=== PATIENT | male | born 1955 | race American Indian/Alaskan Native ===

== ENCOUNTER 2016-09-22 12:10 | Emergency (ER) | payer SELFPAY ==
[2016-09-22 13:39] VITALS: BP 139/82
== END 2016-09-22 18:18 | disposition left against medical advice (07) ==
LOC: ED 12:10
DX: M79.673 Pain in unspecified foot (principal); Z53.21 Procedure and treatment not carried out due to patient leaving prior to being seen by health care provider

== ENCOUNTER 2017-05-04 12:50 | Emergency (ER) | payer MEDICARE ==
[2017-05-04 13:35] LABS: Bilirubin,Urine NEG (Negative); Blood,Urine NEG (Negative); Ketones,Urine NEG (Negative); Leukocyte Esterase,Urine NEG (Negative); Mucus,Urine FEW /HPF; Nitrite,Urine NEG (Negative); Protein,Urine <15 mg/dL mg/dL (Negative); Urobilinogen,Urine < 2.0 mg/dL (<2.0); WBC,Urine < 1.0 /HPF (0.0-6.0)
--- NOTE | 2017-05-04 17:20 | Emergency Department Report ---
HPI - General Chief Complaint: Urogenital-Male Time Seen by Provider: 05/04/17 16:45 - HPI HPI: The patient is a 62-year-old male with no prior medical history presents to ED complaining of possible hemorrhage due to straining earlier today. Patient states he had a bowel movement this morning and has to strain a lot and after that had some mild rectal pain. Patient states he wanted to be checked for hemorrhoids. Patient also states that he's noticed his urine as different odor for about a while now. Patient denies fever/chills/vomiting/dysuria/abdominal pain/penal discharge/ testicular pain or swelling. He denies blood in his stool or in the urine as well as any recent sexual intercourse ED Past Medical Hx - Past Medical History Previous Medical History?: No - Surgical History Past Surgical History?: No - Social History Smoking Status: Never Smoker Substance Use Type: None - Medications Home Medications: Home Medications Medication Instructions Recorded Confirmed Last Taken Type Ibuprofen [Motrin] 800 mg PO Q8HR PRN 09/22/16 09/22/16 09/21/16 History Phenyleph/Mineral Oil/Petrolat 1 applic RC DAILY #1 tube 05/04/17 Unknown Rx [Preparation H Ointment] ED Review of Systems ROS: Stated complaint: URINE ODOR Other details as noted in HPI Constitutional: denies: chills, fever Eyes: denies: eye pain, eye discharge, vision change ENT: denies: ear pain, throat pain Respiratory: denies: cough, shortness of breath, wheezing Cardiovascular: denies: chest pain, palpitations Endocrine: no symptoms reported Gastrointestinal: denies: abdominal pain, nausea, diarrhea Genitourinary: denies: urgency, dysuria Musculoskeletal: denies: back pain, joint swelling, arthralgia Skin: denies: rash, lesions Neurological: denies: headache, weakness, paresthesias Psychiatric: denies: anxiety, depression Hematological/Lymphatic: denies: easy bleeding, easy bruising Physical Exam - Physical Exam Vital Signs: Vital Signs 05/04/17 12:58 Temperature 98.6 F Pulse Rate 83 Respiratory 18 Rate Blood Pressure 144/88 O2 Sat by Pulse 99 Oximetry Physical Exam: GENERAL: Alert and oriented x3, no apparent distress, Normal Gait, atraumatic. HEAD: Head is normocephalic and a-traumatic. EYES: Extra ocular muscles are intact. Pupils are equal, round, and reactive to light and accommodation. NECK: Supple. Non edematous, No carotid bruits. No lymphadenopathy or thyromegaly. No C-spine tenderness LUNGS: Symetrical with respiration, No wheezing, no rales or crackles, CTAB. HEART: S1, S2 present, regular rate and rhythm without murmur, no rubs, no gallops. Non tender to palpation ABDOMEN: No organomegaly was noted,Positive bowel sounds, soft, and non- distended. . Nontender to palpation on all Quadrants, NO CVA tenderness. RECTUM: No bleeding bleeding observed.Mild external hemorrhoid 7- 8:00, nontender to palpation UROGENITAL: No scrotal mass, Scrotum non tender to palpation bilaterally, no hernia, no scars or penile discharge. SKIN: Warm and dry, No lesions, No ulceration or induration present. ED Course Vital Signs 05/04/17 12:58 Temperature 98.6 F Pulse Rate 83 Respiratory 18 Rate Blood Pressure 144/88 O2 Sat by Pulse 99 Oximetry ED Medical Decision Making - Medical Decision Making 62-year-old male presents with mild hemorrhoidal skin tag ED course: Urinalysis ordered. Urinalysis negative Discussed the patient to use hemorrhoidal preparation H cream as discussed Discussed findings with the patient. Discussed follow-up with primary care physician. Discussed high-fiber diet and Colace as needed for stool softening. Patient is stable patient has no logical deficits His vital signs are normal patient is in no acute distress. He is alert and oriented 3 and states he'll follow-up with his primary care Critical care attestation.: If time is entered above; I have spent that time in minutes in the direct care of this critically ill patient, excluding procedure time. ED Disposition Clinical Impression: Hemorrhoid Qualifiers: Hemorrhoid type: first degree Qualified Code(s): K64.0 - First degree hemorrhoids Disposition: - TO HOME OR SELFCARE Is pt being admited?: No Does the pt Need Aspirin: No Condition: Stable Instructions: Hemorrhoids (ED) Additional Instructions: Follow-up which her primary care physician. Prescriptions: Phenyleph/Mineral Oil/Petrolat [Preparation H Ointment] 1 applic RC DAILY #1 tube Referrals: PRIMARY CARE, [Primary Care Provider] - 3-5 Days Forms: Work/School Release Form(ED) Time of Disposition: 17:57
[2017-05-04 18:18] VITALS: BP 111/84
== END 2017-05-04 18:18 | disposition home or self-care (01) ==
LOC: ED 12:50
DX: K64.0 First degree hemorrhoids (principal)
CPT/HCPCS: 81001; 99283

== ENCOUNTER 2018-01-25 13:13 | Emergency (ER) | payer MEDICARE ==
[2018-01-25 13:36] VITALS: BP 140/83
--- NOTE | 2018-01-25 16:45 | Emergency Department Report ---
ED Male HPI - General Chief complaint: Urogenital-Male Stated complaint: UROGENTELIA-MALE Time Seen by Provider: 01/25/18 16:31 Source: patient Mode of arrival: Ambulatory Limitations: No Limitations - History of Present Illness Initial comments: This is a 63-year-old male nontoxic, well nourished in appearance, no acute signs of distress presents to the ED with c/o of dyrusia and polyuria x3 days. Patient denies any testicular pain or swelling. Patient denies any penile discharge or penile ulcers. Patient denies any nausea, vomiting, chest pain, shortness of breathe, fever, chills, headache, back pain, numbness, tingling, stiff neck. Patient denies any other urinary symptoms. Patient denies any allergies or PMH. MD Complaint: dysuria -: days(s) (3) Radiation: none Severity: mild Severity scale (0 -10): 3 Quality: burning Consistency: constant Improves with: none Worsens with: urination dysuria. denies: discharge, swelling, mass, rash, urinary retention, blood in urine, fever, nausea/vomiting, incontinence - Related Data Home Medications Medication Instructions Recorded Confirmed Last Taken Ibuprofen [Motrin] 800 mg PO Q8HR PRN 09/22/16 09/22/16 09/21/16 Previous Rx's Medication Instructions Recorded Last Taken Type Phenyleph/Mineral Oil/Petrolat 1 applic RC DAILY #1 tube 05/04/17 Unknown Rx [Preparation H Ointment] Ciprofloxacin HCl [Ciprofloxacin 500 mg PO Q12HR #14 tab 01/25/18 Unknown Rx TAB] Allergies Allergy/AdvReac Type Severity Reaction Status Date / Time No Known Allergies Allergy Verified 01/25/18 13:30 ED Review of Systems ROS: Stated complaint: UROGENTELIA-MALE Other details as noted in HPI Constitutional: denies: chills, fever Eyes: denies: eye pain, eye discharge, vision change ENT: denies: ear pain, throat pain Respiratory: denies: cough, shortness of breath, wheezing Cardiovascular: denies: chest pain, palpitations Endocrine: no symptoms reported Gastrointestinal: denies: abdominal pain, nausea, diarrhea Genitourinary: urgency, dysuria, frequency. denies: hematuria, discharge, testicular pain, testicular mass Musculoskeletal: denies: back pain, joint swelling, arthralgia Skin: denies: rash, lesions Neurological: denies: headache, weakness, paresthesias Psychiatric: denies: anxiety, depression Hematological/Lymphatic: denies: easy bleeding, easy bruising ED Past Medical Hx - Past Medical History Previous Medical History?: No - Surgical History Past Surgical History?: No - Social History Smoking Status: Never Smoker Substance Use Type: None - Medications Home Medications: Home Medications Medication Instructions Recorded Confirmed Last Taken Type Ibuprofen [Motrin] 800 mg PO Q8HR PRN 09/22/16 09/22/16 09/21/16 History Phenyleph/Mineral Oil/Petrolat 1 applic RC DAILY #1 tube 05/04/17 Unknown Rx [Preparation H Ointment] Ciprofloxacin HCl [Ciprofloxacin 500 mg PO Q12HR #14 tab 01/25/18 Unknown Rx TAB] ED Physical Exam - General Limitations: No Limitations General appearance: alert, in no apparent distress - Head Head exam: Present: atraumatic, normocephalic - Eye Eye exam: Present: normal appearance Pupils: Present: normal accommodation - ENT ENT exam: Present: normal exam, mucous membranes moist - Neck Neck exam: Present: normal inspection, full ROM - Respiratory Respiratory exam: Present: normal lung sounds bilaterally. Absent: respiratory distress - Cardiovascular Cardiovascular Exam: Present: regular rate, normal rhythm. Absent: systolic murmur, diastolic murmur, rubs, gallop - GI/Abdominal GI/Abdominal exam: Present: soft, normal bowel sounds - Rectal Rectal exam: Present: deferred - exam: Present: normal inspection. Absent: testicular tenderness, urethral discharge, scrotal swelling, vertical testicular lie External exam: Present: normal external exam. Absent: erythema, swelling, lesions, lacerations, ecchymosis, bleeding - Extremities Exam Extremities exam: Present: normal inspection, full ROM - Back Exam Back exam: Present: normal inspection - Neurological Exam Neurological exam: Present: alert, oriented X3 - Psychiatric Psychiatric exam: Present: normal affect, normal mood - Skin Skin exam: Present: warm, dry, intact, normal color. Absent: rash ED Course Vital Signs 01/25/18 13:30 Temperature 98 F Pulse Rate 100 H Respiratory 16 Rate Blood Pressure 140/83 O2 Sat by Pulse 99 Oximetry - Reevaluation(s) Reevaluation #1: 01/25/18 16:48 Patient is speaking in full sentences with no signs of distress noted. ED Medical Decision Making - Medical Decision Making This is a 63-year-old male that presents for urethritis. Patient is stable was examined by me. UA obtained. Urine culture pending. There is no CVA tenderness. Patient denies any STD exposure. Patient discharged with ciprofloxacin 7 days. Patient was referred to Follow-up with a primary care doctor in 3-5 days or if symptoms worsen and continue return to emergency room as soon as possible. At time of discharge, the patient does not seem toxic or ill in appearance. No acute signs of distress noted. Patient agrees to discharge treatment plan of care. No further questions noted by the patient. Critical care attestation.: If time is entered above; I have spent that time in minutes in the direct care of this critically ill patient, excluding procedure time. ED Disposition Clinical Impression: Urethritis Disposition: DC-01 TO HOME OR SELFCARE Is pt being admited?: No Does the pt Need Aspirin: No Condition: Stable Instructions: Nonspecific Urethritis in Men (ED), Ciprofloxacin (By mouth) Additional Instructions: Follow-up with a primary care doctor in 3-5 days or if symptoms worsen and continue return to emergency room as soon as possible. Prescriptions: Ciprofloxacin HCl [Ciprofloxacin TAB] 500 mg PO Q12HR #14 tab Referrals: PRIMARY CAREMD [Primary Care Provider] - 3-5 Days HARSH GUY MD [Staff Physician] - 3-5 Days [facility] [Outside] - 3-5 Days [facility] [Outside] - 3-5 Days Forms: Work/School Release Form(ED)
[2018-01-25 18:42] LABS: Bilirubin,Urine NEG (Negative); Blood,Urine MOD (Negative); Color,Urine Yellow (Yellow); Protein,Urine <15 mg/dL mg/dL (Negative); Urobilinogen,Urine < 2.0 mg/dL (<2.0); WBC,Urine < 1.0 /HPF (0.0-6.0)
== END 2018-01-25 20:18 | disposition home or self-care (01) ==
LOC: ED 13:13
DX: N34.2 Other urethritis (principal)
CPT/HCPCS: 81001; 87086; 87186; 99283

== ENCOUNTER 2019-05-30 13:14 | Emergency (ER) | payer MEDICARE ==
[2019-05-30 13:53] VITALS: BP 166/97
--- NOTE | 2019-05-30 16:15 | Emergency Department Report ---
- General Chief complaint: Skin Rash Stated complaint: RIB PAIN Time Seen by Provider: 05/30/19 15:11 Source: patient Mode of arrival: Ambulatory Limitations: No Limitations - History of Present Illness Initial comments: 65-year-old male with no significant past medical history presents also complaining of generalized rash 3-4 days. Rash started at the arms and legs and to a lesser extent to the torso. It does not involve the palms or the soles. Patient denies oral lesions, fever, exposure to new soaps, lotions, detergents, or medications. Patient also complains of bilateral flank flat oblique abdominal muscle pain particularly with moving. Patient feels like he's having spasms and states he has been exercising a a lot lately. Patient shares a home with multiple people and no else has any skin rash or bites. - Related Data Home Medications Medication Instructions Recorded Confirmed Last Taken Ibuprofen [Motrin] 800 mg PO Q8HR PRN 09/22/16 09/22/16 09/21/16 Previous Rx's Medication Instructions Recorded Last Taken Type Phenyleph/Mineral Oil/Petrolat 1 applic RC DAILY #1 tube 05/04/17 Unknown Rx [Preparation H Ointment] Ciprofloxacin HCl [Ciprofloxacin 500 mg PO Q12HR #14 tab 01/25/18 Unknown Rx TAB] diphenhydrAMINE [Benadryl CAP] 25 mg PO Q6HR PRN #20 capsule 05/30/19 Unknown Rx predniSONE [Deltasone] 40 mg PO QDAY 5 Days tab 05/30/19 Unknown Rx Allergies Allergy/AdvReac Type Severity Reaction Status Date / Time No Known Allergies Allergy Verified 01/25/18 13:30 Abscess Boil HPI - HPI Chief Complaint: Skin Rash Stated Complaint: RIB PAIN Time Seen by Provider: 05/30/19 15:11 Home Medications: Home Medications Medication Instructions Recorded Confirmed Last Taken Ibuprofen [Motrin] 800 mg PO Q8HR PRN 09/22/16 09/22/16 09/21/16 Previous Rx's Medication Instructions Recorded Last Taken Type Phenyleph/Mineral Oil/Petrolat 1 applic RC DAILY #1 tube 05/04/17 Unknown Rx [Preparation H Ointment] Ciprofloxacin HCl [Ciprofloxacin 500 mg PO Q12HR #14 tab 01/25/18 Unknown Rx TAB] diphenhydrAMINE [Benadryl CAP] 25 mg PO Q6HR PRN #20 capsule 05/30/19 Unknown Rx predniSONE [Deltasone] 40 mg PO QDAY 5 Days tab 05/30/19 Unknown Rx Allergies/Adverse Reactions: Allergies Allergy/AdvReac Type Severity Reaction Status Date / Time No Known Allergies Allergy Verified 01/25/18 13:30 ED Review of Systems ROS: Stated complaint: RIB PAIN Other details as noted in HPI Comment: All other systems reviewed and negative ED Past Medical Hx - Past Medical History Previous Medical History?: No - Surgical History Past Surgical History?: No - Social History Smoking Status: Never Smoker Substance Use Type: None - Medications Home Medications: Home Medications Medication Instructions Recorded Confirmed Last Taken Type Ibuprofen [Motrin] 800 mg PO Q8HR PRN 09/22/16 09/22/16 09/21/16 History Phenyleph/Mineral Oil/Petrolat 1 applic RC DAILY #1 tube 05/04/17 Unknown Rx [Preparation H Ointment] Ciprofloxacin HCl [Ciprofloxacin 500 mg PO Q12HR #14 tab 01/25/18 Unknown Rx TAB] diphenhydrAMINE [Benadryl CAP] 25 mg PO Q6HR PRN #20 capsule 05/30/19 Unknown Rx predniSONE [Deltasone] 40 mg PO QDAY 5 Days tab 05/30/19 Unknown Rx ED Physical Exam - General Limitations: No Limitations - Other Other exam information: Gen.: No acute distress Head: Atraumatic Eyes: Normal appearance ENT: No oral lesions or posterior pharyngeal edema Neck: Normal appearance, no posterior midline tenderness, no meningismus Chest: Clear to auscultation bilaterally Cardiovascular: Regular rate and rhythm Abdomen: Normal appearance, soft, nontender, no rebound or guarding, normal bowel sounds Back: Normal appearance, nontender Extremity: Full range of motion, normal appearance Neuro: Alert and oriented 3, clear speech, no focal motor or sensory deficit Psychiatric: Appropriate Skin: Generalized pruritic papular rash that is excoriated. Rash more significant on the arms and thighs. No warmth or erythema. Rash spares the palms and soles. ED Course Vital Signs 05/30/19 13:30 Temperature 98.5 F Pulse Rate 92 H Respiratory 16 Rate Blood Pressure 166/97 O2 Sat by Pulse 100 Oximetry ED Medical Decision Making - Medical Decision Making Blood pressure elevated follow-up advised Patient receiving Benadryl and steroids prescription for pruritic rash. - Differential Diagnosis insect bites, allergic reaction Critical Care Time: No Critical care attestation.: If time is entered above; I have spent that time in minutes in the direct care of this critically ill patient, excluding procedure time. ED Disposition Clinical Impression: Pruritic rash Disposition: - TO HOME OR SELFCARE Is pt being admited?: No Does the pt Need Aspirin: No Condition: Stable Instructions: Acute Rash (ED) Additional Instructions: Take the medication as prescribed. Follow-up with your doctor or with the doc tor/clinic provided. Return if symptoms worsen as indicated by your discharge instructions. Prescriptions: diphenhydrAMINE [Benadryl CAP] 25 mg PO Q6HR PRN #20 capsule PRN Reason: Itching predniSONE [Deltasone] 40 mg PO QDAY 5 Days tab Referrals: PRIMARY CARE, [Primary Care Provider] - 3-5 Days [facility] [Provider Group] - 3-5 Days Time of Disposition: 16:16
== END 2019-05-30 16:22 | disposition home or self-care (01) ==
LOC: ED 13:14
DX: R21 Rash and other nonspecific skin eruption (principal); L29.9 Pruritus, unspecified; Z79.899 Other long term (current) drug therapy

== ENCOUNTER 2019-06-30 12:08 | Emergency (ER) | payer MEDICARE ==
[2019-06-30 13:03] VITALS: BP 143/89
--- NOTE | 2019-06-30 13:07 | Emergency Department Report ---
Chief Complaint: Urogenital-Male Stated Complaint: PROBLEMS WITH PENIS Time Seen by Provider: 06/30/19 13:02 - HPI History of Present Illness: This is a 64 y o male presents to ED cc of burning in his penis, he denies any lesions , testicular pain or swelling or dysuria He denies fever, chills, n/v or abd pain. She denies any prostate disease or issues. Pt states that he is not sexually active and does not think he has a STD Pt states this has happened before and he got some medicine and it went away, cant recall what medication. - ROS Review of Systems: As noted in HPI - Exam Physical Exam: Gen: no acute distress, AMBULATORY AAOx 3 ABD: NOn tender to palpation MSE screening note: Focused history and physical exam performed. Due to findings the following was ordered: ED Medical Decision Making - Lab Data Laboratory Last Values Urine Color Yellow (Yellow) 06/30/19 14:15 Urine Turbidity Clear (Clear) 06/30/19 14:15 Urine pH 6.0 (5.0-7.0) 06/30/19 14:15 Ur Specific [place] 1.019 (1.003-1.030) 06/30/19 14:15 Urine Protein <15 mg/dl mg/dL (Negative) 06/30/19 14:15 Urine Glucose (UA) Neg mg/dL (Negative) 06/30/19 14:15 Urine Ketones Neg mg/dL (Negative) 06/30/19 14:15 Urine Blood Neg (Negative) 06/30/19 14:15 Urine Nitrite Neg (Negative) 06/30/19 14:15 Urine Bilirubin Neg (Negative) 06/30/19 14:15 Urine Urobilinogen < 2.0 mg/dL (<2.0) 06/30/19 14:15 Ur Leukocyte Esterase Neg (Negative) 06/30/19 14:15 Urine WBC (Auto) 1.0 /HPF (0.0-6.0) 06/30/19 14:15 Urine RBC (Auto) 1.0 /HPF (0.0-6.0) 06/30/19 14:15 U Epithel Cells (Auto) 1.0 /HPF (0-13.0) 06/30/19 14:15 - Medical Decision Making This is a 64-year-old male that presents for urethritis. UA obtained. Urine culture pending. There is no CVA tenderness. Patient denies any STD exposure. Patient was discharged with ciprofloxacin and Pyridium. Patient was referred to Follow-up with a primary care doctor in 3-5 days or if symptoms worsen as well as followed up as well at time of discharge, the patient does not seem toxic or ill in appearance. No acute signs of distress noted. Patient agrees to discharge treatment plan of care. No further questions noted by the patient. ED Disposition for MSE Clinical Impression: Dysuria Disposition: DC- TO HOME OR SELFCARE Is pt being admited?: No Does the pt Need Aspirin: No Condition: Stable Instructions: Dysuria (ED) Additional Instructions: follow up with pcp Prescriptions: Ciprofloxacin HCl [Ciprofloxacin TAB] 500 mg PO Q12HR #14 tab Phenazopyridine [Pyridium] 100 mg PO TID #8 tab Referrals: LIONEL WYNN MD [Primary Care Provider] - 3-5 Days AZEEM HARVEY MD [Referring] - 3-5 Days FRANCISCO SWANN MD [Referring] - 3-5 Days [facility] [Provider Group] - 3-5 Days Time of Disposition: 15:15
[2019-06-30 14:40] LABS: Bilirubin,Urine NEG (Negative); Blood,Urine NEG (Negative); Color,Urine Yellow (Yellow); Protein,Urine <15 mg/dL mg/dL (Negative); Urobilinogen,Urine < 2.0 mg/dL (<2.0)
== END 2019-06-30 15:21 | disposition home or self-care (01) ==
LOC: ED 12:08
DX: R30.0 Dysuria (principal)
CPT/HCPCS: 81001

== ENCOUNTER 2020-08-13 14:05 | Emergency (ER) | payer MEDICARE ==
[2020-08-13 14:26] VITALS: BP 128/83
--- NOTE | 2020-08-13 14:33 | Emergency Department Report ---
ED Upper Extremity Inj HPI - General Chief Complaint: Extremity Problem,Nontraumatic Stated Complaint: MUSCLE SPAMS Time Seen by Provider: 08/13/20 14:26 Source: patient Mode of arrival: Ambulatory Limitations: No Limitations - History of Present Illness Initial Comments: This is a 65-year-old male nontoxic, well nourished in appearance, no acute signs of distress presents to the ED with c/o of acute on chronic left upper shoulder pain. Patient stated that the past 2 days he was working out and developed this pain. Patient stated has been working out prior to pain. Patient denies any trauma. Denies any bladder or bowel instability. Patient denies any urinary symptoms. Denies any fever, chills, nausea, vomiting, headache, stiff neck, chest pain or shortness of breath. Patient denies any numbness or tingling. Denies any allergies. MD Complaint: Injury to:: left, shoulder -: days(s) Other Extremity Injury: Shoulder: Left Severity scale (0 -10): 8 Improves With: immobilization Worsens With: movement of extremity Associated Symptoms: denies other symptoms. denies: weakness, numbness, neck pain, suspects foreign body, nausea/vomiting, heard/felt popping sensat - Related Data Home Medications Medication Instructions Recorded Confirmed Last Taken Ibuprofen [Motrin] 800 mg PO Q8HR PRN 09/22/16 09/22/16 09/21/16 Previous Rx's Medication Instructions Recorded Last Taken Type Phenyleph/Mineral Oil/Petrolat 1 applic RC DAILY #1 tube 05/04/17 Unknown Rx [Preparation H Ointment] diphenhydrAMINE [Benadryl CAP] 25 mg PO Q6HR PRN #20 capsule 05/30/19 Unknown Rx predniSONE [Deltasone] 40 mg PO QDAY 5 Days tab 05/30/19 Unknown Rx Ciprofloxacin HCl [Ciprofloxacin 500 mg PO Q12HR #14 tab 06/30/19 Unknown Rx TAB] Phenazopyridine [Pyridium] 100 mg PO TID #8 tab 06/30/19 Unknown Rx Omeprazole 20 mg PO QDAY #20 capsule. 02/23/20 Unknown Rx Cyclobenzaprine [Flexeril] 10 mg PO QHS PRN #10 tablet 08/13/20 Unknown Rx Naproxen 500 mg PO Q12H PRN #12 tablet 08/13/20 Unknown Rx Allergies Allergy/AdvReac Type Severity Reaction Status Date / Time No Known Allergies Allergy Verified 02/23/20 12:39 ED Review of Systems ROS: Stated complaint: MUSCLE SPAMS Other details as noted in HPI Comment: All other systems reviewed and negative Constitutional: denies: chills, fever Eyes: denies: eye pain, eye discharge, vision change ENT: denies: ear pain, throat pain Respiratory: denies: cough, shortness of breath, wheezing Cardiovascular: denies: chest pain, palpitations Endocrine: no symptoms reported Gastrointestinal: denies: abdominal pain, nausea, diarrhea Genitourinary: denies: urgency, dysuria Musculoskeletal: denies: back pain, joint swelling, arthralgia Skin: denies: rash, lesions Neurological: denies: headache, weakness, paresthesias Psychiatric: denies: anxiety, depression Hematological/Lymphatic: denies: easy bleeding, easy bruising ED Past Medical Hx - Past Medical History Previous Medical History?: No - Surgical History Past Surgical History?: No - Social History Smoking Status: Never Smoker Substance Use Type: None - Medications Home Medications: Home Medications Medication Instructions Recorded Confirmed Last Taken Type Ibuprofen [Motrin] 800 mg PO Q8HR PRN 09/22/16 09/22/16 09/21/16 History Phenyleph/Mineral Oil/Petrolat 1 applic RC DAILY #1 tube 05/04/17 Unknown Rx [Preparation H Ointment] diphenhydrAMINE [Benadryl CAP] 25 mg PO Q6HR PRN #20 capsule 05/30/19 Unknown Rx predniSONE [Deltasone] 40 mg PO QDAY 5 Days tab 05/30/19 Unknown Rx Ciprofloxacin HCl [Ciprofloxacin 500 mg PO Q12HR #14 tab 06/30/19 Unknown Rx TAB] Phenazopyridine [Pyridium] 100 mg PO TID #8 tab 06/30/19 Unknown Rx Omeprazole 20 mg PO QDAY #20 capsule. 02/23/20 Unknown Rx Cyclobenzaprine [Flexeril] 10 mg PO QHS PRN #10 tablet 08/13/20 Unknown Rx Naproxen 500 mg PO Q12H PRN #12 tablet 08/13/20 Unknown Rx ED Physical Exam - General Limitations: No Limitations General appearance: alert, in no apparent distress - Head Head exam: Present: atraumatic, normocephalic - Eye Eye exam: Present: normal appearance - Neck Neck exam: Present: normal inspection, full ROM - Respiratory Respiratory exam: Absent: respiratory distress - Cardiovascular Cardiovascular Exam: Present: regular rate - Extremities Exam Extremities exam: Present: normal inspection, full ROM, tenderness, normal capillary refill. Absent: joint swelling - Expanded Upper Extremity Exam Left General: Present: normal inspection Shoulder Exam: Present: normal inspection, full ROM, tenderness (deltoid muscle area). Absent: swelling, abrasion, laceration, ecchymosis, deformity, crepidus, dislocation, erythema, tenderness over AC joint Upper Arm exam: Present: normal inspection, full ROM. Absent: tenderness, swelling Elbow exam: Present: normal inspection, full ROM. Absent: tenderness, swelling Forearm Wrist exam: Present: normal inspection, full ROM. Absent: tenderness, swelling Hand Wrist exam: Present: normal inspection, full ROM. Absent: tenderness, swelling Vascular: Present: normal capillary refill. Absent: vascular compromise (normal neurovascular exam) - Back Exam Back exam: Present: normal inspection, full ROM. Absent: tenderness, CVA tenderness (R), CVA tenderness (L), muscle spasm, paraspinal tenderness, v ertebral tenderness, rash noted - Neurological Exam Neurological exam: Present: alert, oriented X3 - Psychiatric Psychiatric exam: Present: normal affect, normal mood - Skin Skin exam: Present: warm, dry, intact, normal color. Absent: rash ED Course Vital Signs 08/13/20 14:25 Temperature 97.8 F Pulse Rate 90 Respiratory 16 Rate Blood Pressure 128/83 [Right] O2 Sat by Pulse 100 Oximetry - Reevaluation(s) Reevaluation #1: 08/13/20 14:37 Patient is speaking in full sentences with no signs of distress noted. ED Medical Decision Making - Medical Decision Making This is a 65-year-old male that presents with left shoulder strain. Patient is stable was examined by me. Patient is discharged with muscle relaxant and NSAID. Patient was instructed not to operate any machinery while taking muscle relaxant as they cause her drowsiness. Patient was referred to Follow-up with a primary care doctor in 3-5 days or if symptoms worsen and continue return to emergency room as soon as possible. At time of discharge, the patient does not seem toxic or ill in appearance. No acute signs of distress noted. Patient agrees to discharge treatment plan of care. No further questions noted by the patient. Critical care attestation.: If time is entered above; I have spent that time in minutes in the direct care of this critically ill patient, excluding procedure time. ED Disposition Clinical Impression: Muscle strain of left shoulder region Disposition: - TO HOME OR SELFCARE Is pt being admited?: No Does the pt Need Aspirin: No Condition: Stable Instructions: Muscle Strain, [id number], Cyclobenzaprine tablets Additional Instructions: Follow-up with a primary care doctor in 3-5 days or if symptoms worsen and continue return to emergency room as soon as possible. Do not operate any machinery while taking Flexeril as it can cause drowsiness. Prescriptions: Cyclobenzaprine [Flexeril] 10 mg PO QHS PRN #10 tablet PRN Reason: Muscle Spasm Naproxen 500 mg PO Q12H PRN #12 tablet PRN Reason: Pain , Severe (7-10) Referrals: PRIMARY MD KINGSLEY [Referring] - 3-5 Days THAIS PETERS MD [Staff Physician] - 3-5 Days Time of Disposition: 14:39
== END 2020-08-13 14:50 | disposition home or self-care (01) ==
LOC: ED 14:05
DX: S46.912A Strain of unspecified muscle, fascia and tendon at shoulder and upper arm level, left arm, initial encounter (principal); Z79.1 Long term (current) use of non-steroidal anti-inflammatories (NSAID); Z79.899 Other long term (current) drug therapy; X58.XXXA Exposure to other specified factors, initial encounter; Y93.89 Activity, other specified; Y92.89 Other specified places as the place of occurrence of the external cause; Y99.8 Other external cause status
CPT/HCPCS: 99281

== ENCOUNTER 2020-10-23 11:31 | Emergency (ER) | payer MEDICARE ==
--- NOTE | 2020-10-23 11:51 | Event Note ---
ED Screening Note ED Screening Note: pt presents to the ED with c/o upper abd pain and rib pain +cough with mucus production no fever no v/d no sick contacts no recent travel PMHx none no allergies to meds non smoker non ETOH This initial assessment/diagnostic orders/clinical plan/treatment(s) is/are subject to change based on patients health status, clinical progression and re- assessment by fellow clinical providers in the ED. Further treatment and workup at subsequent clinical providers discretion. Patient/guardian urged not to elope from the ED as their condition may be serious if not clinically assessed and managed. Initial orders include: labs, ua, xr
[2020-10-23 12:25] LABS: Amorphous Crystals,Urine Few; Bilirubin,Urine NEG (Negative); Blood,Urine NEG (Negative); Color,Urine Yellow (Yellow); Mucus,Urine FEW /HPF; Urobilinogen,Urine < 2.0 mg/dL (<2.0)
[2020-10-23] MEDS ORDERED: FAMOTIDINE 20 MG TAB PO ONE (12:47)
[2020-10-23] MEDS ORDERED: SODIUM CHLORIDE 0.9% 1000 ML 1,000 ML IV ONE (12:48)
--- NOTE | 2020-10-23 12:49 | Emergency Department Report ---
ED Abdominal Pain HPI - General Chief Complaint: Abdominal Pain Stated Complaint: RIB PAIN, BAD COLD Time Seen by Provider: 10/23/20 11:49 Source: patient Mode of arrival: Ambulatory Limitations: No Limitations - History of Present Illness Initial Comments: 65-year-old male with no significant past history presents to the ER today with complaints of pain to lateral aspect of abdomen bilaterally, and epigastric area and cough. Patient states that his pain started about 1 week ago. He states that has been constant. Patient feels like there is a knot in the epigastric area. He also reports associated productive cough for the past couple days. He denies any associated nausea, vomiting, bowel changes, UTI symptoms, shortness of breath, wheezing, fever, chills, chest pain, URI symptoms or any other symptoms. He denies any prior abdominal surgeries. MD Complaint: abdominal pain -: week(s) (1) - Related Data Home Medications Medication Instructions Recorded Confirmed Last Taken Ibuprofen [Motrin] 800 mg PO Q8HR PRN 09/22/16 09/22/16 09/21/16 Previous Rx's Medication Instructions Recorded Last Taken Type Phenyleph/Mineral Oil/Petrolat 1 applic RC DAILY #1 tube 05/04/17 Unknown Rx [Preparation H Ointment] diphenhydrAMINE [Benadryl CAP] 25 mg PO Q6HR PRN #20 capsule 05/30/19 Unknown Rx predniSONE [Deltasone] 40 mg PO QDAY 5 Days tab 05/30/19 Unknown Rx Ciprofloxacin HCl [Ciprofloxacin 500 mg PO Q12HR #14 tab 06/30/19 Unknown Rx TAB] Phenazopyridine [Pyridium] 100 mg PO TID #8 tab 06/30/19 Unknown Rx Omeprazole 20 mg PO QDAY #20 capsule. 02/23/20 Unknown Rx Cyclobenzaprine [Flexeril] 10 mg PO QHS PRN #10 tablet 08/13/20 Unknown Rx Naproxen 500 mg PO Q12H PRN #12 tablet 08/13/20 Unknown Rx Benzonatate [Tessalon Perles] 100 mg PO Q8HR PRN #30 capsule 10/23/20 Unknown Rx Famotidine [Pepcid] 20 mg PO BID #60 tablet 10/23/20 Unknown Rx Allergies Allergy/AdvReac Type Severity Reaction Status Date / Time No Known Allergies Allergy Verified 02/23/20 12:39 ED Review of Systems ROS: Stated complaint: RIB PAIN, BAD COLD Other details as noted in HPI Comment: All other systems reviewed and negative Constitutional: denies: chills, fever Eyes: denies: eye pain, eye discharge, vision change ENT: denies: ear pain, throat pain Respiratory: cough. denies: shortness of breath, SOB with exertion, SOB at rest, wheezing Cardiovascular: denies: chest pain, palpitations Endocrine: no symptoms reported Gastrointestinal: abdominal pain. denies: nausea, vomiting, diarrhea, constipation, hematemesis, melena, hematochezia Genitourinary: denies: urgency, dysuria, frequency, hematuria, discharge Musculoskeletal: denies: back pain, joint swelling, arthralgia Skin: denies: rash, lesions Neurological: denies: headache, weakness, paresthesias Psychiatric: denies: anxiety, depression Hematological/Lymphatic: denies: easy bleeding, easy bruising ED Past Medical Hx - Past Medical History Previous Medical History?: No - Surgical History Past Surgical History?: No - Social History Smoking Status: Never Smoker Substance Use Type: None - Medications Home Medications: Home Medications Medication Instructions Recorded Confirmed Last Taken Type Ibuprofen [Motrin] 800 mg PO Q8HR PRN 09/22/16 09/22/16 09/21/16 History Phenyleph/Mineral Oil/Petrolat 1 applic RC DAILY #1 tube 05/04/17 Unknown Rx [Preparation H Ointment] diphenhydrAMINE [Benadryl CAP] 25 mg PO Q6HR PRN #20 capsule 05/30/19 Unknown Rx predniSONE [Deltasone] 40 mg PO QDAY 5 Days tab 05/30/19 Unknown Rx Ciprofloxacin HCl [Ciprofloxacin 500 mg PO Q12HR #14 tab 06/30/19 Unknown Rx TAB] Phenazopyridine [Pyridium] 100 mg PO TID #8 tab 06/30/19 Unknown Rx Omeprazole 20 mg PO QDAY #20 capsule. 02/23/20 Unknown Rx Cyclobenzaprine [Flexeril] 10 mg PO QHS PRN #10 tablet 08/13/20 Unknown Rx Naproxen 500 mg PO Q12H PRN #12 tablet 08/13/20 Unknown Rx Benzonatate [Tessalon Perles] 100 mg PO Q8HR PRN #30 capsule 10/23/20 Unknown Rx Famotidine [Pepcid] 20 mg PO BID #60 tablet 10/23/20 Unknown Rx ED Physical Exam - General Limitations: No Limitations General appearance: alert, in no apparent distress - Head Head exam: Present: atraumatic, normocephalic, normal inspection - Eye Eye exam: Present: normal appearance, PERRL, EOMI Pupils: Present: normal accommodation - ENT ENT exam: Present: normal exam, mucous membranes moist - Neck Neck exam: Present: normal inspection - Respiratory Respiratory exam: Present: normal lung sounds bilaterally. Absent: respiratory distress - Cardiovascular Cardiovascular Exam: Present: regular rate, normal rhythm, normal heart sounds - GI/Abdominal GI/Abdominal exam: Present: soft. Absent: distended, tenderness, guarding, rebound - Neurological Exam Neurological exam: Present: alert, oriented X3, CN II-XII intact, normal gait - Psychiatric Psychiatric exam: Present: normal affect, normal mood - Skin Skin exam: Present: intact ED Course Vital Signs 10/23/20 11:47 Temperature 98.1 F Pulse Rate 75 Respiratory 16 Rate Blood Pressure 146/84 O2 Sat by Pulse 100 Oximetry ED Medical Decision Making - Lab Data Result diagrams: 10/23/20 12:26 10/23/20 12:26 - EKG Data EKG shows normal: sinus rhythm Rate: normal (71) - EKG Data Interpretation: no acute changes, LVH, other - Radiology Data Radiology results: report reviewed Patient: SARAHI ECHEVARRIA JR MR#: [id number] : 1955 Acct:[id number] Age/Sex: 65 / M ADM Date: 10/23/20 Loc: ED Attending Dr: Ordering Physician: DANTE JALLOH Date of Service: 10/23/20 Procedure(s): XR chest routine 2V Accession Number(s): [id number] cc: DANTE JALLOH Fluoro Time In Minutes: CHEST 2 VIEWS INDICATION / CLINICAL INFORMATION: cough. COMPARISON: Chest radiograph 02/23/2020 FINDINGS: SUPPORT DEVICES: None. HEART / MEDIASTINUM: No significant abnormality. LUNGS / PLEURA: No significant pulmonary or pleural abnormality. No pneumothorax. ADDITIONAL FINDINGS: No significant additional findings. IMPRESSION: 1. No acute findings. Signer Name: Britt Kee MD Signed: 10/23/2020 4:55 PM Workstation Name: [id number] Transcribed By: [facility] Dictated By: Britt Kee MD Electronically Authenticated By: Britt Kee MD Signed Date/Time: 10/23/20 1655 Patient: SARAHI ECHEVARRIA JR MR#: [id number] : 1955 Acct:[id number] Age/Sex: 65 / M ADM Date: 10/23/20 Loc: ED Attending Dr: Ordering Physician: JIMMY AMBROSE Date of Service: 10/23/20 Procedure(s): CT abdomen pelvis w con Accession Number(s): [id number] cc: JIMMY AMBROSE CT ABDOMEN AND PELVIS WITH CONTRAST INDICATION / CLINICAL INFORMATION: Epigastric pain. TECHNIQUE: Axial CT images were obtained through the abdomen and pelvis after 100 mL Omnipaque [address] scans at this location are performed using CT dose reduction for ALARA by means of automated exposure control. COMPARISON: None available. FINDINGS: LOWER CHEST: No significant abnormality. LIVER: No significant abnormality. BILIARY SYSTEM: No significant abnormality. PANCREAS: No significant abnormality. SPLEEN: No significant abnormality. ADRENALS: No significant abnormality. KIDNEYS and URETERS: No significant abnormality. STOMACH / BOWEL: No significant abnormality. The appendix is normal. PERITONEUM: No free fluid. No free air. No fluid collection. LYMPH NODES: No significant adenopathy. VASCULAR STRUCTURES: No significant abnormality. URINARY BLADDER: No significant abnormality. REPRODUCTIVE ORGANS: No significant abnormality. ADDITIONAL FINDINGS: None. SKELETAL SYSTEM: No significant abnormality. IMPRESSION: 1. No acute process identified within the abdomen or pelvis to account for abdominal pain. Signer Name: Britt Kee MD Signed: 10/23/2020 4:00 PM Workstation Name: [id number] Transcribed By: [facility] Dictated By: Britt Kee MD Electronically Authenticated By: Britt Kee MD Signed Date/Time: 10/23/20 1600 - Medical Decision Making 65-year-old male with no significant past history presents to the ER today with complaints of pain to lateral aspect of abdomen bilaterally, and epigastric area and cough. Patient states that his pain started about 1 week ago. He states that has been constant. Patient feels like there is a knot in the epigastric area. He also reports associated productive cough for the past couple days. He denies any associated nausea, vomiting, bowel changes, UTI symptoms, shortness of breath, wheezing, fever, chills, chest pain, URI symptoms or any other symptoms. He denies any prior abdominal surgeries. 1717: Patient currently resting comfortably, sitting on the edge of the bed playing on his phone. He is not toxic, not ill-appearing and currently does not appear to be in any distress. He is neurologically intact with a normal gait. Labs and CT/chest x-ray reviewed, nothing acute on work-up today. EKG showed no acute ischemic changes/STEMI or significant dysrhythmia. His history, exam, diagnostic testing and current condition do not suggest acute coronary syndrome, acute appendicitis, bowel obstruction, acute cholecystitis, bowel perforation, major GI bleed, severe diverticulitis, abdominal aortic aneurysm, mesenteric ischemia, volvulus, sepsis or other significant pathology to warrant further testing, continued ED treatment, admission or surgical evaluation at this point. The patient's vital signs have been stable. The patient does not have uncontrollable pain, intractable vomiting or other significant symptoms. Discussed x-ray results, CT results and lab results with patient. Discussed suspected diagnosis and treatment plan with patient. The patient's condition is stable and appropriate for discharge from the emergency department. Patient stable at time of discharge Critical care attestation.: If time is entered above; I have spent that time in minutes in the direct care of this critically ill patient, excluding procedure time. ED Disposition Clinical Impression: Epigastric abdominal pain, Cough Disposition: DC-01 TO HOME OR SELFCARE Is pt being admited?: No Does the pt Need Aspirin: No Condition: Stable Instructions: Cough, Adult, [id number], Abdominal Pain, Adult, Chsi-be-Kpix Additional Instructions: Take the Tessalon Perles and the Pepcid and Protonix as prescribed. Follow-up with the primary care doctor listed on your discharge instructions. Return to [facility] ER if your symptoms changes or worsens in any way. Prescriptions: Famotidine [Pepcid] 20 mg PO BID #60 tablet Benzonatate [Tessalon Perles] 100 mg PO Q8HR PRN #30 capsule PRN Reason: Cough Referrals: THAIS PETERS MD [Staff Physician] - 3-5 Days Time of Disposition: 17:05
[2020-10-23 13:06] LABS: Basophils % (Auto) 0.5 % (0.0-1.8); Eosinophils # (Auto) 0.1 K/mm3 (0.0-0.4); Hematocrit 43.2 % (35.5-45.6); Hemoglobin 14.4 gm/dl (11.8-15.2); Lymphocytes # (Auto) 1.1 K/mm3 (1.2-5.4); Lymphocytes % (Auto) 43.9 % (13.4-35.0); Mean Corpuscular HGB Conc 33 % (32-34); Mean Corpuscular Volume 89 fl (84-94); Monocytes # (Auto) 0.3 K/mm3 (0.0-0.8); Monocytes % (Auto) 13.2 % (0.0-7.3); Platelet Count 158 K/mm3 (140-440); Red Blood Count 4.84 M/mm3 (3.65-5.03); Red Cell Distribution Width 13.1 % (13.2-15.2)
[2020-10-23 13:38] LABS: Alanine Aminotransferase 13 units/L (7-56); Albumin 4.2 g/dL (3.9-5); BUN/Creatinine Ratio 10; Blood Urea Nitrogen 10 mg/dL (9-20); Calcium 8.9 mg/dL (8.4-10.2); Hemolysis Index 7
--- NOTE | 2020-10-23 16:05 | Cat Scan Report ---
CT ABDOMEN AND PELVIS WITH CONTRAST INDICATION / CLINICAL INFORMATION: Epigastric pain. TECHNIQUE: Axial CT images were obtained through the abdomen and pelvis after 100 mL Omnipaque [address] scans at this location are performed using CT dose reduction for ALARA by means of automated exposure control. COMPARISON: None available. FINDINGS: LOWER CHEST: No significant abnormality. LIVER: No significant abnormality. BILIARY SYSTEM: No significant abnormality. PANCREAS: No significant abnormality. SPLEEN: No significant abnormality. ADRENALS: No significant abnormality. KIDNEYS and URETERS: No significant abnormality. STOMACH / BOWEL: No significant abnormality. The appendix is normal. PERITONEUM: No free fluid. No free air. No fluid collection. LYMPH NODES: No significant adenopathy. VASCULAR STRUCTURES: No significant abnormality. URINARY BLADDER: No significant abnormality. REPRODUCTIVE ORGANS: No significant abnormality. ADDITIONAL FINDINGS: None. SKELETAL SYSTEM: No significant abnormality. IMPRESSION: 1. No acute process identified within the abdomen or pelvis to account for abdominal pain. Signer Name: Britt Kee MD Signed: 10/23/2020 4:00 PM Workstation Name: [id number]
--- NOTE | 2020-10-23 17:00 | XRay Report ---
CHEST 2 VIEWS INDICATION / CLINICAL INFORMATION: cough. COMPARISON: Chest radiograph 02/23/2020 FINDINGS: SUPPORT DEVICES: None. HEART / MEDIASTINUM: No significant abnormality. LUNGS / PLEURA: No significant pulmonary or pleural abnormality. No pneumothorax. ADDITIONAL FINDINGS: No significant additional findings. IMPRESSION: 1. No acute findings. Signer Name: Britt Kee MD Signed: 10/23/2020 4:55 PM Workstation Name: [id number]
[2020-10-23 17:40] VITALS: BP 174/92
== END 2020-10-23 17:40 | disposition home or self-care (01) ==
LOC: ED 11:31
DX: R10.13 Epigastric pain (principal); R05 Cough; Z79.1 Long term (current) use of non-steroidal anti-inflammatories (NSAID); Z79.2 Long term (current) use of antibiotics; Z79.899 Other long term (current) drug therapy
CPT/HCPCS: 36415; 71046; 74177; 80053; 81001; 83690; 84484; 85025; 93005; 96360; 96361; 99284; J7030; Q9967

== ENCOUNTER 2020-12-30 12:40 | Emergency (ER) | payer MEDICARE ==
[2020-12-30 14:28] VITALS: BP 116/78
--- NOTE | 2020-12-30 16:17 | Emergency Department Report ---
ED General Adult HPI - General Chief complaint: Urogenital-Male Stated complaint: PAIN IN PENIS, SWOLLEN LEFT EYE Time Seen by Provider: 12/30/20 15:40 Source: patient Mode of arrival: Ambulatory Limitations: No Limitations - History of Present Illness Initial comments: 65-year-old male presents to the ER today with multiple complaints. Patient states that he has been having dysuria and urinary frequency since yesterday. He also reports swelling and burning sensation around the head of his penis. He also complains of swelling with some mild itching and soreness to his right upper eyelid's over the past couple days but without any drainage from the eye, vision changes or injury to the eye. He also complains a few bumpy rash to his forearm which she has been having off and on for a while. Patient states that he has not been sexually active since 2015 since his . MD Complaint: dysuria, eyelid swelling, rash forearms -: Gradual - Related Data Home Medications Medication Instructions Recorded Confirmed Last Taken Ibuprofen [Motrin] 800 mg PO Q8HR PRN 09/22/16 09/22/16 09/21/16 Previous Rx's Medication Instructions Recorded Last Taken Type Phenyleph/Mineral Oil/Petrolat 1 applic RC DAILY #1 tube 05/04/17 Unknown Rx [Preparation H Ointment] diphenhydrAMINE [Benadryl CAP] 25 mg PO Q6HR PRN #20 capsule 05/30/19 Unknown Rx predniSONE [Deltasone] 40 mg PO QDAY 5 Days tab 05/30/19 Unknown Rx Ciprofloxacin HCl [Ciprofloxacin 500 mg PO Q12HR #14 tab 06/30/19 Unknown Rx TAB] Omeprazole 20 mg PO QDAY #20 capsule. 02/23/20 Unknown Rx Cyclobenzaprine [Flexeril] 10 mg PO QHS PRN #10 tablet 08/13/20 Unknown Rx Naproxen 500 mg PO Q12H PRN #12 tablet 08/13/20 Unknown Rx Benzonatate [Tessalon Perles] 100 mg PO Q8HR PRN #30 capsule 10/23/20 Unknown Rx Famotidine [Pepcid] 20 mg PO BID #60 tablet 10/23/20 Unknown Rx Erythromycin [Erythromycin Ophth 1 applic OP QID 7 Days #1 tube 12/30/20 Unknown Rx Oint] Phenazopyridine [Pyridium] 100 mg PO TID #8 tab 12/30/20 Unknown Rx Allergies Allergy/AdvReac Type Severity Reaction Status Date / Time No Known Allergies Allergy Verified 02/23/20 12:39 ED Review of Systems ROS: Stated complaint: PAIN IN PENIS, SWOLLEN LEFT EYE Other details as noted in HPI Comment: All other systems reviewed and negative Constitutional: denies: chills, fever Eyes: as per HPI, other (Right upper lid swelling, itching and pain). denies: eye pain, eye discharge, vision change ENT: denies: ear pain, throat pain, dental pain, hearing loss, epistaxis, congestion Respiratory: denies: cough, orthopnea, shortness of breath, SOB with exertion, SOB at rest, wheezing Cardiovascular: denies: chest pain, palpitations, edema, syncope, paroxysmal nocturnal dyspnea Gastrointestinal: denies: abdominal pain, nausea, vomiting, diarrhea, constipation, hematemesis, melena, hematochezia Genitourinary: dysuria. denies: urgency, frequency, hematuria, discharge, testicular pain, testicular mass Skin: rash, pruritus Neurological: denies: headache, weakness, paresthesias Psychiatric: denies: anxiety, depression Hematological/Lymphatic: denies: easy bleeding, easy bruising ED Past Medical Hx - Past Medical History Previous Medical History?: No - Surgical History Past Surgical History?: No - Social History Smoking Status: Never Smoker Substance Use Type: None - Medications Home Medications: Home Medications Medication Instructions Recorded Confirmed Last Taken Type Ibuprofen [Motrin] 800 mg PO Q8HR PRN 09/22/16 09/22/16 09/21/16 History Phenyleph/Mineral Oil/Petrolat 1 applic RC DAILY #1 tube 05/04/17 Unknown Rx [Preparation H Ointment] diphenhydrAMINE [Benadryl CAP] 25 mg PO Q6HR PRN #20 capsule 05/30/19 Unknown Rx predniSONE [Deltasone] 40 mg PO QDAY 5 Days tab 05/30/19 Unknown Rx Ciprofloxacin HCl [Ciprofloxacin 500 mg PO Q12HR #14 tab 06/30/19 Unknown Rx TAB] Omeprazole 20 mg PO QDAY #20 capsule. 02/23/20 Unknown Rx Cyclobenzaprine [Flexeril] 10 mg PO QHS PRN #10 tablet 08/13/20 Unknown Rx Naproxen 500 mg PO Q12H PRN #12 tablet 08/13/20 Unknown Rx Benzonatate [Tessalon Perles] 100 mg PO Q8HR PRN #30 capsule 10/23/20 Unknown Rx Famotidine [Pepcid] 20 mg PO BID #60 tablet 10/23/20 Unknown Rx Erythromycin [Erythromycin Ophth 1 applic OP QID 7 Days #1 tube 12/30/20 Unknown Rx Oint] Phenazopyridine [Pyridium] 100 mg PO TID #8 tab 12/30/20 Unknown Rx ED Physical Exam - General Limitations: No Limitations General appearance: alert, in no apparent distress - Head Head exam: Present: atraumatic, normocephalic, normal inspection - Eye Eye exam: Present: PERRL, EOMI, other (Very mild swelling noted to the right up per lid with a possible developing stye. No significant erythema or tenderness noted). Absent: scleral icterus, conjunctival injection, periorbital swelling, periorbital tenderness Pupils: Present: normal accommodation - Neck Neck exam: Present: normal inspection, full ROM - Respiratory Respiratory exam: Present: normal lung sounds bilaterally. Absent: respiratory distress, wheezes, rales, rhonchi - Cardiovascular Cardiovascular Exam: Present: regular rate, normal rhythm, normal heart sounds - exam: Present: normal inspection. Absent: testicular tenderness, urethral discharge, scrotal swelling External exam: Present: normal external exam. Absent: erythema, swelling, lesions, lacerations, ecchymosis, bleeding - Extremities Exam Extremities exam: Present: normal inspection - Neurological Exam Neurological exam: Present: alert, oriented X3, CN II-XII intact - Psychiatric Psychiatric exam: Present: normal mood - Skin Skin exam: Present: rash (Small papular flesh-colored bumps scattered to the volar aspect of both forearms. No drainage or tenderness or erythema) ED Course Vital Signs 12/30/20 14:26 Temperature 98.7 F Pulse Rate 73 Respiratory 20 Rate Blood Pressure 116/78 O2 Sat by Pulse 98 Oximetry Critical care attestation.: If time is entered above; I have spent that time in minutes in the direct care of this critically ill patient, excluding procedure time. ED Disposition Clinical Impression: Dysuria, Skin rash, Stye Disposition: - TO HOME OR SELFCARE Is pt being admited?: No Does the pt Need Aspirin: No Condition: Stable Instructions: Stye, Dysuria, Rash, Adult, [id number] Additional Instructions: I recommend using hydrocortisone cream form over the counter applied to the rash on your forearm twice a day. Use the antibiotic eye ointment as well as warm compresses to the right eye. Recommend that you follow-up with primary care doctor as well as the urologist if you continue having dysuria. Return to the ER if your symptoms changes or worsens in any way. Prescriptions: Erythromycin [Erythromycin Ophth Oint] 1 applic OP QID 7 Days #1 tube Phenazopyridine [Pyridium] 100 mg PO TID #8 tab Referrals: TONEY ANDREW MD [Primary Care Provider] - 3-5 Days LUTHER BHAKTA MD [Staff Physician] - 3-5 Days Time of Disposition: 17:45
[2020-12-30 17:00] LABS: Bilirubin,Urine NEG (Negative); Blood,Urine NEG (Negative); Color,Urine Yellow (Yellow); Mucus,Urine FEW /HPF; Protein,Urine <15 mg/dL mg/dL (Negative); Urobilinogen,Urine < 2.0 mg/dL (<2.0)
== END 2020-12-30 18:14 | disposition home or self-care (01) ==
LOC: ED 12:40
DX: R30.0 Dysuria (principal); H00.011 Hordeolum externum right upper eyelid; R21 Rash and other nonspecific skin eruption; Z79.1 Long term (current) use of non-steroidal anti-inflammatories (NSAID); Z79.899 Other long term (current) drug therapy
CPT/HCPCS: 81001; 99283

== ENCOUNTER 2021-04-19 17:43 | Emergency (ER) | payer MEDICARE ==
[2021-04-19 17:55] VITALS: BP 175/97
[2021-04-19] MEDS ORDERED: ASPIRIN 325 MG TAB PO ONE (18:19)
--- NOTE | 2021-04-19 18:20 | Event Note ---
ED Screening Note ED Screening Note: Patient is a 66-year-old male presents emergency room complaints of left-sided directly underneath the chest that began 4 to 5 days ago States he has intermittent muscle spasm Patient states that he does heavy lifting He states that today he was at a friend's and was not sure if that increases pain He denies any nausea, vomiting, diarrhea, shortness of breath, cough, hemoptysis, leg swelling He denies any recent travel or recent surgery He denies any known sick contacts Patient denies any past medical history and he has no history of hypertension No allergies to medications he is a never smoker This initial assessment/diagnostic orders/clinical plan/treatment(s) is/are subject to change based on patients health status, clinical progression and re- assessment by fellow clinical providers in the ED. Further treatment and workup at subsequent clinical providers discretion. Patient/guardian urged not to elope from the ED as their condition may be serious if not clinically assessed and managed. Initial orders include: Chest pain protocol
--- NOTE | 2021-04-19 18:48 | XRay Report ---
CHEST 2 VIEWS INDICATION / CLINICAL INFORMATION: Chest Pain. COMPARISON: 10/23/2020 FINDINGS: SUPPORT DEVICES: None. HEART / MEDIASTINUM: No significant abnormality. LUNGS / PLEURA: No significant pulmonary or pleural abnormality. No pneumothorax. The lungs are hyper inflated consistent with COPD. ADDITIONAL FINDINGS: No significant additional findings. IMPRESSION: 1. No acute pulmonary or pleural disease. No interval change. 2. COPD. Signer Name: Irina Cohen MD Signed: 04/19/2021 6:44 PM Workstation Name: [id number]
[2021-04-19 19:12] LABS: Hematocrit 43.1 % (35.5-45.6); Hemoglobin 14.2 gm/dl (11.8-15.2); Mean Corpuscular HGB Conc 33 % (32-34); Mean Corpuscular Volume 90 fl (84-94); Platelet Count 155 K/mm3 (140-440); Red Blood Count 4.79 M/mm3 (3.65-5.03); Red Cell Distribution Width 13.1 % (13.2-15.2)
[2021-04-19 19:24] LABS: Alanine Aminotransferase 14 units/L (7-56); Albumin 4.3 g/dL (3.9-5); BUN/Creatinine Ratio 8; Blood Urea Nitrogen 9 mg/dL (9-20); Calcium 9.3 mg/dL (8.4-10.2); Hemolysis Index 15
--- NOTE | 2021-04-19 19:40 | Emergency Department Report ---
ED Chest Pain HPI - General Chief Complaint: Chest Pain Stated Complaint: CHEST PAIN SINUS PUI?: No Time Seen by Provider: 04/19/21 18:03 Source: patient Mode of arrival: Ambulatory Limitations: No Limitations - History of Present Illness Initial Comments: Chief complaint: Just wanted to make sure I was okay This is a 66-year-old male with a significant past medical history presents with left chest pain for 5 days ago. He notices that chest spasms is worse when he works out. He denies shortness of breath, fever, vomiting, cough. No recent travel. No history of heart disease or cardiac evaluation. Denies hypertension diabetes hypercholesterolemia. Patient also has chest pressure in his face in the nasal region. He does have a PCP. MD Complaint: chest pain -: Gradual, days(s) (4 to 5 days ago) Onset: during rest Pain Location: left chest Severity: mild Consistency: intermittent, now resolved Improves With: nothing Worsens With: nothing - Related Data Home Medications Medication Instructions Recorded Confirmed Last Taken Ibuprofen [Motrin] 800 mg PO Q8HR PRN 09/22/16 09/22/16 09/21/16 Previous Rx's Medication Instructions Recorded Last Taken Type Phenyleph/Mineral Oil/Petrolat 1 applic RC DAILY #1 tube 05/04/17 Unknown Rx [Preparation H Ointment] diphenhydrAMINE [Benadryl CAP] 25 mg PO Q6HR PRN #20 capsule 05/30/19 Unknown Rx predniSONE [Deltasone] 40 mg PO QDAY 5 Days tab 05/30/19 Unknown Rx Ciprofloxacin HCl [Ciprofloxacin 500 mg PO Q12HR #14 tab 06/30/19 Unknown Rx TAB] Omeprazole 20 mg PO QDAY #20 capsule. 02/23/20 Unknown Rx Cyclobenzaprine [Flexeril] 10 mg PO QHS PRN #10 tablet 08/13/20 Unknown Rx Naproxen 500 mg PO Q12H PRN #12 tablet 08/13/20 Unknown Rx Benzonatate [Tessalon Perles] 100 mg PO Q8HR PRN #30 capsule 10/23/20 Unknown Rx Famotidine [Pepcid] 20 mg PO BID #60 tablet 10/23/20 Unknown Rx Erythromycin [Erythromycin Ophth 1 applic OP QID 7 Days #1 tube 12/30/20 Unknown Rx Oint] Phenazopyridine [Pyridium] 100 mg PO TID #8 tab 12/30/20 Unknown Rx Allergies Allergy/AdvReac Type Severity Reaction Status Date / Time No Known Allergies Allergy Verified 04/19/21 17:54 Heart Score - HEART Score History: Slightly suspicious EKG: Non-specific Age: 45-65 Risk factors: No known risk factors Troponin: < normal limit HEART Score: 2 - EKG Read Time Time EKG Completed: 18:03 EKG Read Time: 18:04 - Critical Actions Critical Actions: 0-3 pts:0.9-1.7%risk of adverse cardiac event.Candidate for discharge ED Review of Systems ROS: Stated complaint: CHEST PAIN SINUS Other details as noted in HPI Comment: All other systems reviewed and negative Constitutional: denies: fever, malaise Respiratory: denies: cough, shortness of breath Cardiovascular: chest pain Gastrointestinal: denies: abdominal pain, nausea, vomiting Musculoskeletal: denies: back pain Neurological: denies: headache ED Past Medical Hx - Past Medical History Previous Medical History?: Yes Hx Hypertension: Yes - Social History Smoking Status: Never Smoker Substance Use Type: None - Medications Home Medications: Home Medications Medication Instructions Recorded Confirmed Last Taken Type Ibuprofen [Motrin] 800 mg PO Q8HR PRN 09/22/16 09/22/16 09/21/16 History Phenyleph/Mineral Oil/Petrolat 1 applic RC DAILY #1 tube 05/04/17 Unknown Rx [Preparation H Ointment] diphenhydrAMINE [Benadryl CAP] 25 mg PO Q6HR PRN #20 capsule 05/30/19 Unknown Rx predniSONE [Deltasone] 40 mg PO QDAY 5 Days tab 05/30/19 Unknown Rx Ciprofloxacin HCl [Ciprofloxacin 500 mg PO Q12HR #14 tab 06/30/19 Unknown Rx TAB] Omeprazole 20 mg PO QDAY #20 capsule. 02/23/20 Unknown Rx Cyclobenzaprine [Flexeril] 10 mg PO QHS PRN #10 tablet 08/13/20 Unknown Rx Naproxen 500 mg PO Q12H PRN #12 tablet 08/13/20 Unknown Rx Benzonatate [Tessalon Perles] 100 mg PO Q8HR PRN #30 capsule 10/23/20 Unknown Rx Famotidine [Pepcid] 20 mg PO BID #60 tablet 10/23/20 Unknown Rx Erythromycin [Erythromycin Ophth 1 applic OP QID 7 Days #1 tube 12/30/20 Unknown Rx Oint] Phenazopyridine [Pyridium] 100 mg PO TID #8 tab 12/30/20 Unknown Rx ED Physical Exam - General Limitations: No Limitations General appearance: alert, in no apparent distress, other (Athletic muscular build) - Head Head exam: Present: atraumatic, normocephalic - Eye Eye exam: Present: normal appearance - ENT ENT exam: Present: mucous membranes moist - Neck Neck exam: Present: normal inspection - Respiratory Respiratory exam: Present: normal lung sounds bilaterally. Absent: respiratory distress, wheezes, rales, rhonchi, stridor - Cardiovascular Cardiovascular Exam: Present: regular rate, normal rhythm, normal heart sounds. Absent: systolic murmur, diastolic murmur, rubs, gallop - GI/Abdominal GI/Abdominal exam: Present: soft, normal bowel sounds - Rectal Rectal exam: Present: deferred - Extremities Exam Extremities exam: Present: normal inspection - Back Exam Back exam: Present: normal inspection - Neurological Exam Neurological exam: Present: alert, oriented X3 - Psychiatric Psychiatric exam: Present: normal affect, normal mood - Skin Skin exam: Present: warm, dry, intact, normal color. Absent: rash ED Course Vital Signs 04/19/21 17:53 Temperature 97.4 F L Pulse Rate 88 Respiratory 18 Rate Blood Pressure 175/97 O2 Sat by Pulse 99 Oximetry ED Medical Decision Making - Lab Data Result diagrams: 04/19/21 18:49 04/19/21 18:49 - Radiology Data Radiology results: report reviewed Chest radiograph: Hyperinflated lungs otherwise no acute findings according radiology impression - Medical Decision Making Chest wall pain: No indication of ACS. EKG reflective of LVH. No evidence of AMI. Troponin x1 ruled out acute myocardial injury. Chest radiograph 2 views no acute findings, hyperinflated lungs. Patient has not had cardiac evaluation. Strongly recommended follow-up with health workers. I have faxed cardiology referral request to [facility]. I will refer patient to his PCP for blood pressure recheck. Referred to health workers. Critical care attestation.: If time is entered above; I have spent that time in minutes in the direct care of this critically ill patient, excluding procedure time. ED Disposition Clinical Impression: Chest wall pain, Elevated blood pressure reading Disposition: 01 HOME / SELF CARE / HOMELESS Is pt being admited?: No Does the pt Need Aspirin: No Condition: Stable Instructions: Nonspecific Chest Pain, Adult, Hypertension, Adult, [id number] Referrals: SIMÓN NAVARRO MD [Staff Physician] - 3-5 Days PRIMARY CARE, [Referring] - 3-5 Days
[2021-04-20 01:55] LABS: Anisocytosis 1+; Platelet Estimate Consistent w Auto; Total Cells Counted 100
--- NOTE | 2021-04-22 09:42 | Electrocardiograph Report ---
[facility] Test Date: 2021-04-19 Test Time: 18:03:33 Pat Name: SARAHI ECHEVARRIA Department: Room: Gender: M Wireless Technician: CATERINA : 1955 Requested By: EVAN PALMA Order Number: [id number] Reading MD: Peter Lopes Measurements Intervals [place] Rate: 80 P: 68 VA: 131 QRS: 78 QRSD: 63 T: 65 QT: 346 QTc: 399 Interpretive Statements Sinus rhythm Probable left atrial enlargement Left ventricular hypertrophy No previous ECG available for comparison Electronically Signed On 04-22-2021 9:42:26 EDT by Peter Lopes
== END 2021-04-19 20:39 | disposition home or self-care (01) ==
LOC: ED 17:43
DX: R07.89 Other chest pain (principal); I10 Essential (primary) hypertension
CPT/HCPCS: 36415; 71046; 80053; 84484; 85007; 85025; 93005; 99283

== ENCOUNTER 2021-08-07 14:30 | Emergency (ER) | payer MEDICAID, MEDICARE ==
--- NOTE | 2021-08-07 16:26 | Emergency Department Report ---
ED Abdominal Pain HPI - General Chief Complaint: Abdominal Pain Stated Complaint: ABDOMINAL PAIN Time Seen by Provider: 08/07/21 16:03 Source: patient Mode of arrival: Ambulatory Limitations: No Limitations - History of Present Illness Initial Comments: Patient is 66 years old male with no significant past medical history. Patient presented to the ER complaining of suprapubic abdominal pain has been going on for 7 days now. Patient denied any nausea or vomiting. No diarrhea no urinary symptoms. Patient also denied any fever or chills. MD Complaint: abdominal pain -: days(s) (7) Location: suprapubic Radiation: none Severity: moderate Severity scale (0 -10): 4 Quality: cramping Associated Symptoms: denies other symptoms - Related Data Home Medications Medication Instructions Recorded Confirmed Last Taken Ibuprofen [Motrin] 800 mg PO Q8HR PRN 09/22/16 09/22/16 09/21/16 Previous Rx's Medication Instructions Recorded Last Taken Type Phenyleph/Mineral Oil/Petrolat 1 applic RC DAILY #1 tube 05/04/17 Unknown Rx [Preparation H Ointment] diphenhydrAMINE [Benadryl CAP] 25 mg PO Q6HR PRN #20 capsule 05/30/19 Unknown Rx predniSONE [Deltasone] 40 mg PO QDAY 5 Days tab 05/30/19 Unknown Rx Ciprofloxacin HCl [Ciprofloxacin 500 mg PO Q12HR #14 tab 06/30/19 Unknown Rx TAB] Omeprazole 20 mg PO QDAY #20 capsule. 02/23/20 Unknown Rx Cyclobenzaprine [Flexeril] 10 mg PO QHS PRN #10 tablet 08/13/20 Unknown Rx Naproxen 500 mg PO Q12H PRN #12 tablet 08/13/20 Unknown Rx Benzonatate [Tessalon Perles] 100 mg PO Q8HR PRN #30 capsule 10/23/20 Unknown Rx Famotidine [Pepcid] 20 mg PO BID #60 tablet 10/23/20 Unknown Rx Erythromycin [Erythromycin Ophth 1 applic OP QID 7 Days #1 tube 12/30/20 Unknown Rx Oint] Phenazopyridine [Pyridium] 100 mg PO TID #8 tab 12/30/20 Unknown Rx methOCARBAMOL [Robaxin TAB] 500 mg PO BID PRN #14 tab 04/19/21 Unknown Rx Allergies Allergy/AdvReac Type Severity Reaction Status Date / Time No Known Allergies Allergy Verified 08/07/21 15:29 ED Review of Systems ROS: Stated complaint: ABDOMINAL PAIN Other details as noted in HPI Comment: All other systems reviewed and negative Constitutional: denies: chills, fever Respiratory: denies: cough, shortness of breath, SOB with exertion Cardiovascular: denies: chest pain, palpitations Gastrointestinal: abdominal pain. denies: nausea, vomiting, diarrhea, consti pation, hematemesis Genitourinary: denies: urgency, dysuria Musculoskeletal: denies: back pain Neurological: denies: headache, weakness, numbness, paresthesias, confusion ED Past Medical Hx - Past Medical History Hx Hypertension: Yes - Social History Smoking Status: Never Smoker Substance Use Type: None - Medications Home Medications: Home Medications Medication Instructions Recorded Confirmed Last Taken Type Ibuprofen [Motrin] 800 mg PO Q8HR PRN 09/22/16 09/22/16 09/21/16 History Phenyleph/Mineral Oil/Petrolat 1 applic RC DAILY #1 tube 05/04/17 Unknown Rx [Preparation H Ointment] diphenhydrAMINE [Benadryl CAP] 25 mg PO Q6HR PRN #20 capsule 05/30/19 Unknown Rx predniSONE [Deltasone] 40 mg PO QDAY 5 Days tab 05/30/19 Unknown Rx Ciprofloxacin HCl [Ciprofloxacin 500 mg PO Q12HR #14 tab 06/30/19 Unknown Rx TAB] Omeprazole 20 mg PO QDAY #20 capsule. 02/23/20 Unknown Rx Cyclobenzaprine [Flexeril] 10 mg PO QHS PRN #10 tablet 08/13/20 Unknown Rx Naproxen 500 mg PO Q12H PRN #12 tablet 08/13/20 Unknown Rx Benzonatate [Tessalon Perles] 100 mg PO Q8HR PRN #30 capsule 10/23/20 Unknown Rx Famotidine [Pepcid] 20 mg PO BID #60 tablet 10/23/20 Unknown Rx Erythromycin [Erythromycin Ophth 1 applic OP QID 7 Days #1 tube 12/30/20 Unknown Rx Oint] Phenazopyridine [Pyridium] 100 mg PO TID #8 tab 12/30/20 Unknown Rx methOCARBAMOL [Robaxin TAB] 500 mg PO BID PRN #14 tab 04/19/21 Unknown Rx ED Physical Exam - General Limitations: No Limitations General appearance: alert, in no apparent distress - Head Head exam: Present: atraumatic, normocephalic, normal inspection - Eye Eye exam: Present: normal appearance - ENT ENT exam: Present: normal exam, normal orophraynx, mucous membranes moist - Neck Neck exam: Present: normal inspection, full ROM. Absent: tenderness, meningismus - Respiratory Respiratory exam: Present: normal lung sounds bilaterally - Cardiovascular Cardiovascular Exam: Present: regular rate, normal rhythm, normal heart sounds - GI/Abdominal GI/Abdominal exam: Present: soft, normal bowel sounds. Absent: distended, tenderness, guarding, rebound, rigid, organomegaly, mass, bruit, pulsatile mass, hernia - Extremities Exam Extremities exam: Present: normal inspection, full ROM, normal capillary refill. Absent: tenderness - Back Exam Back exam: Present: normal inspection, full ROM. Absent: CVA tenderness (R), CVA tenderness (L) - Neurological Exam Neurological exam: Present: alert, oriented X3, CN II-XII intact - Psychiatric Psychiatric exam: Present: normal mood - Skin Skin exam: Present: warm, intact, normal color ED Course Vital Signs 08/07/21 15:27 Temperature 99.8 F H Pulse Rate 116 H Respiratory 14 Rate Blood Pressure 147/102 [Left] O2 Sat by Pulse 100 Oximetry ED Medical Decision Making - Lab Data Result diagrams: 08/07/21 16:35 08/07/21 16:35 - Radiology Data Radiology results: report reviewed - Medical Decision Making Patient is 66 years old male with no significant past medical history. Patient presented to the ER complaining of suprapubic abdominal pain has been going on for 7 days now. Patient denied any nausea or vomiting. No diarrhea no urinary symptoms. Patient also denied any fever or chills. Labs reviewed and is unremarkable. Patient remained stable in the ER with stable vital sign. CT abdomen pelvis negative for acute finding. Patient advised to follow-up with his primary doctor in the next 2 to 3 days and to return to the ER if he develop any new symptoms. Critical care attestation.: If time is entered above; I have spent that time in minutes in the direct care of this critically ill patient, excluding procedure time. ED Disposition Clinical Impression: Acute abdominal pain Disposition: HOME / SELF CARE / HOMELESS Is pt being admited?: No Condition: Stable Instructions: Abdominal Pain, Adult, [id number] Referrals: PRIMARY CARE,MD [Primary Care Provider] - 3-5 Days
[2021-08-07 17:09] LABS: Alanine Aminotransferase 16 units/L (7-56); Albumin 4.7 g/dL (3.9-5); BUN/Creatinine Ratio 10; Blood Urea Nitrogen 16 mg/dL (9-20); Calcium 9.1 mg/dL (8.4-10.2); Hemolysis Index 8
[2021-08-07 17:11] LABS: Bilirubin,Direct < 0.2 mg/dL (0-0.2)
[2021-08-07 17:12] LABS: Hematocrit 47.7 % (35.5-45.6); Hemoglobin 15.1 gm/dl (11.8-15.2); Mean Corpuscular HGB Conc 32 % (32-34); Mean Corpuscular Volume 90 fl (84-94); Platelet Count 143 K/mm3 (140-440); Red Blood Count 5.29 M/mm3 (3.65-5.03); Red Cell Distribution Width 13.5 % (13.2-15.2)
[2021-08-07 18:08] LABS: Total Cells Counted 100
[2021-08-07 18:09] LABS: Anisocytosis 1+
--- NOTE | 2021-08-07 19:46 | Cat Scan Report ---
CT abdomen pelvis wo con INDICATION: ABDOMINAL PAIN. COMPARISON: CT abdomen pelvis wo con INDICATION: ABDOMINAL PAIN. COMPARISON: 10/23/2020 TECHNIQUE: Abdominal and pelvic CT exam performed. All CT scans at this location are performed using CT dose reduction for ALARA by means of automated exposure control. FINDINGS: CT ABDOMEN and PELVIS: Lung Bases: No significant abnormality. Liver: No significant abnormality. Biliary: No significant abnormality. Spleen: No significant abnormality. Pancreas: No significant abnormality. Adrenals: No significant abnormality. Kidneys: No significant abnormality. Lymphatics: No lymphadenopathy. Vasculature: No significant abnormality. Bowel: No significant abnormality. Normal appendix. Pelvis: No significant abnormality. Osseous Structures: No aggressive osseous lesion. Additional Findings: None IMPRESSION: 1. No significant abnormality of the abdomen or pelvis. Signer Name: Srinivas Velásquez MD Signed: 08/07/2021 7:42 PM Workstation Name: [id number]
[2021-08-07 19:52] LABS: Bilirubin,Urine NEG (Negative); Blood,Urine NEG (Negative); Color,Urine Yellow (Yellow); Mucus,Urine 1+ /HPF; Protein,Urine <15 mg/dL mg/dL (Negative); Urobilinogen,Urine < 2.0 mg/dL (<2.0)
[2021-08-07 20:37] VITALS: BP 136/86
== END 2021-08-07 20:34 | disposition home or self-care (01) ==
LOC: ED 14:30
DX: R10.9 Unspecified abdominal pain (principal); I10 Essential (primary) hypertension
CPT/HCPCS: 36415; 74176; 80048; 80076; 81001; 83690; 85007; 85025; 99284

== ENCOUNTER 2022-03-28 14:45 | Emergency (ER) | payer MEDICARE ==
--- NOTE | 2022-03-28 16:15 | XRay Report ---
CHEST 2 VIEWS INDICATION / CLINICAL INFORMATION: Congestion with cough. Hypertension. COMPARISON: 04/19/21. FINDINGS: SUPPORT DEVICES: None. HEART / MEDIASTINUM: The heart size and pulmonary vasculature are normal. LUNGS / PLEURA: The lungs are hyperinflated, but clear. No pneumothorax. ADDITIONAL FINDINGS: No significant additional findings. IMPRESSION: Emphysema without acute abnormality. Signer Name: Lasha Lee MD Signed: 03/28/2022 4:10 PM Workstation Name: [email or web address]
--- NOTE | 2022-03-28 17:07 | Emergency Department Report ---
Minor Respiratory - HPI Chief Complaint: Upper Respiratory Infection Stated Complaint: TONGUE AND FACE IRR/MUCUS Time Seen by Provider: 03/28/22 17:06 Duration: 3 Days Pain Location: Throat Severity: mild Minor Respiratory: Yes Sore Throat, Yes Able to Tolerate Fluids, No Rhinorrhea, No Ear Pain, No Cough, No Sick Contacts, No Hemoptysis, No Chest Pain, No Shortness of Breath, No Fever Other History: 67 YO COMES IN WITH SORE THROAT. NO FEVER OR CHILLS. NO COUGH. BUT DOES HAVE CLEAR WHITE MUCOUS. NO CP. NO SOB. AMBULATORY AND IN NAD ED Review of Systems ROS: Stated complaint: TONGUE AND FACE IRR/MUCUS Other details as noted in HPI Comment: All other systems reviewed and negative ED Past Medical Hx - Past Medical History Previous Medical History?: Yes Hx Hypertension: Yes - Surgical History Past Surgical History?: No - Family History Family history: no significant - Social History Smoking Status: Never Smoker Substance Use Type: None - Medications Home Medications: Home Medications Medication Instructions Recorded Confirmed Last Taken Type Amoxicillin [Trimox CAP] 500 mg PO BID #20 capsule 03/28/22 Unknown Rx Minor Respiratory Exam - Exam General: Vital signs noted. No distress. Alert and acting appropriately. HEENT: Yes Pharyngeal Erythema, Yes Moist Mucous Membranes, No Pharyngeal Exudates, No Rhinorrhea, No Conjuctival Injection, No Frontal Tenderness, No Maxillary Tenderness Ear: Neither TM Bulge, Neither TM Erythema, Neither EAC Pain, Neither EAC Discharge Neck: Yes Supple, No Adenopathy Lungs: Yes Good Air Exchange, No Wheezes, No Ronchi, No Stridor, No Cough, No Labored Respirations, No Retractions, No Use of Accessory Muscles, No Other Abnormal Lung Sounds Heart: Yes Regular, No Murmur Abdomen: Yes Normal Bowel Sounds, No Tenderness, No Peritoneal Signs Skin: No Rash, No Edema Neurologic: Alert and oriented, no deficits. Musculoskeletal: Unremarkable. ED Course Vital Signs 03/28/22 15:33 Temperature 98.5 F Pulse Rate 81 Respiratory 18 Rate Blood Pressure 172/92 [Left] O2 Sat by Pulse 99 Oximetry ED Medical Decision Making - Radiology Data Radiology results: report reviewed, image reviewed [facility] - Medical Decision Making Vital Signs 03/28/22 03/28/22 15:33 17:09 Temperature 98.5 F Pulse Rate 81 87 Respiratory 18 16 Rate Blood Pressure 172/92 174/94 [Left] O2 Sat by Pulse 99 100 Oximetry HX A/C HTN NO CP NO SOB NEURO INTACT LUNGS CTA XRAY NAP COPD ALTHOUGH PT DENIES DENIES SMOKING UVULITIS ON EXAM TAKING PO ABC INTACT DC HOME WITH DC PLAN OF CARE INCLUDING DIET, MEDS, ACTIVITY AND FOLLOW UP VERBALIZES UNDERSTANDING OF PLAN OF CARE. - Differential Diagnosis RO URI Critical care attestation.: If time is entered above; I have spent that time in minutes in the direct care of this critically ill patient, excluding procedure time. ED Disposition Clinical Impression: Uvulitis, History of chronic hypertension Disposition: 01 HOME / SELF CARE / HOMELESS Is pt being admited?: No Does the pt Need Aspirin: No Condition: Stable Instructions: Uvulitis Additional Instructions: MED ORDERED TODAY MOTRIN OR TYLENOL FOR PAIN FOLLOW UP WITH PCP REERRAL BELOW Prescriptions: Amoxicillin [Trimox CAP] 500 mg PO BID #20 capsule Referrals: THAIS PETERS MD [Staff Physician] - 3-5 Days Forms: Work/School Release Form(ED) Time of Disposition: 17:25
[2022-03-28 17:10] VITALS: BP 174/94
== END 2022-03-28 18:00 | disposition home or self-care (01) ==
LOC: ED 14:45
DX: K12.2 Cellulitis and abscess of mouth (principal); I10 Essential (primary) hypertension
CPT/HCPCS: 71046; 99283